=== PATIENT | female | born 1930 | race Caucasian/White ===

== ENCOUNTER 2016-09-20 11:02 | Inpatient (IN) | payer MEDICARE, BC ==
[2016-09-14 15:21] LABS: ASCORBIC ACID (UR NOT ORDER) 20 (NEG); BILIRUBIN, URINE NEGATIVE (NEG); KETONE, URINE NEGATIVE (NEG); LEUKOCYTE ESTERASE(NOT OR LARGE (NEG); WBC (NOT ORDERED) (RFLEX) 152 (0-5)
--- NOTE | ~2016-09-20 | OP ---
Record Of Operation [facility] [address] [place]. [address] NAME: TOMI LEONARD : 32 STATUS : ADM IN PAT#: [id number] AGE: 86 ADM/REG DATE : 09/20/16 MR#: [id number] REPORT SERV DATE: 09/20/16 DICTATED BY: ASHANTI VILLASENOR DATE: 09/20/16 REPORT STATUS : Draft TRANSCRIBED BY: MODL DATE: 09/20/16 DATE OF PROCEDURE: 09/20/2016 PREOPERATIVE DIAGNOSIS: Colovesical fistula. POSTOPERATIVE DIAGNOSIS: Colovesical fistula. PROCEDURE PERFORMED: Cystoscopy with left ureteral catheterization. SURGEON: Ashanti Villasenor M.D. ANESTHESIA: General. DRAINS: 1. Bajwa catheter. 2. Left 5-Tanzanian open-ended ureteral catheter. INDICATION: Ms. Leonard is an 86-year-old, with symptomatic colovesical fistula. She has had recurring UTIs. She started Ancef yesterday for positive urine culture. 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 TECHNIQUE: Informed consent was obtained. She was brought to the operating room, Ancef and Flagyl were given preop. General endotracheal anesthesia was administered. Initially the abdomen, introitus, and perirectal area were prepped and draped in the lithotomy position. Rigid cystoscopy was performed. There was some sediment at the bladder base. Clear efflux on the right and left UO. The left ureter was cannulated and a Pollack catheter was passed to a 26 cm. The bladder was inspected. There was a fistulous site approximately 3 cm superior to the left UO on the left lobe bladder wall on the left posterior bladder wall. No papillary features. The cystoscope was removed. I placed a 16-Tanzanian Bajwa catheter, connected the opening catheter to the Bajwa. Once Dr. Bravo had performed her initial portion of the surgery and the colon was dissected away from the bladder I irrigated the Bajwa with 250 mL of sterile water. There was no visible leak. There was some inflammation in the area, but cystorrhaphy did not seem warranted. Bladder was reconnected to drainage bag. This can be removed in five to seven days postop. CHUY/HAYDEN Ashanti Villasenor M.D. / [id number] Record Of [address] [place]. [address] NAME: TOMI LEONARD : 32 STATUS : ADM IN PAT#: [id number] AGE: 86 ADM/REG DATE : 09/20/16 MR#: [id number] REPORT SERV DATE: 09/20/16 DICTATED BY: ASHANTI VILLASENOR DATE: 09/20/16 REPORT STATUS : Draft TRANSCRIBED BY: MODL DATE: 09/20/16 CC: Sukhjinder Pool M.D.
--- NOTE | ~2016-09-20 | HP ---
History And Physical [id number] [place]. [address] NAME: TOMI MCKENZIE : 32 STATUS : ADM IN [facility]#: [id number] AGE: 86 ADM/REG DATE : 09/20/16 MR#: [id number] REPORT SERV DATE: 09/20/16 DICTATED BY: LEBRON LOUISE DATE: 09/20/16 REPORT STATUS : Draft TRANSCRIBED BY: HAYDEN DATE: 09/20/16 DATE OF ADMISSION: 09/20/2016 REASON FOR ADMISSION: Robotic low anterior resection for colovesicular fistula. PAST MEDICAL HISTORY: Significant for hyperlipidemia, colovesicular fistula, hypertension, irritable bowel syndrome, scarlet fever as a child, and skin cancer. PAST SURGICAL HISTORY: Appendectomy, cataract surgery, skin cancer removal, cholecystectomy, right hip and knee replacement, and pacemaker. SOCIAL HISTORY: She is not a smoker. She is a social drinker and drinks one glass of wine a week. FAMILY HISTORY: Noncontributory. ALLERGIES: DOXYCYCLINE, NEXIUM, AND SULFA. MEDICATIONS: Mesalamine, aspirin, multivitamin, levothyroxine, potassium, losartan, amlodipine, pravastatin, Meloxicam, and hydrochlorothiazide. REVIEW OF SYSTEMS: As stated in HPI, otherwise, negative. PHYSICAL EXAMINATION: VITAL SIGNS: 80, 133/86. BMI of 23. GENERAL: Alert, thin white female, in no acute distress. HEENT: Normocephalic, atraumatic. EOMI. PERRLA. Oropharynx is clear. NECK: Supple. No lymphadenopathy. Clear to auscultation bilaterally. HEART: Regular rate and rhythm. ABDOMEN: Soft, flat, with appropriate surgical scars. EXTREMITIES: Moves all extremities well. Cranial nerves 2 through 12 are intact. SKIN: No rashes. CAROLINE/HAYDEN Lebron Louise M.D. / [id number] CC: Lebron Louise M.D.
--- NOTE | ~2016-09-20 | OP ---
Record Of Operation [facility] [address] [place]. [address] NAME: TOMI MCKENZIE : 32 STATUS : ADM IN PAT#: [id number] AGE: 86 ADM/REG DATE : 09/20/16 MR#: [id number] REPORT SERV DATE: 09/21/16 DICTATED BY: LEBRON BRAVO DATE: 09/20/16 REPORT STATUS : Draft TRANSCRIBED BY: MODL DATE: 09/20/16 DATE OF PROCEDURE: 09/20/2016 PROCEDURE: Robotic low anterior resection with omental flap. Please see Dr. Conroy's dictation for cystoscopy with placement of left ureteral stent. PIT SUPERVISOR: Arjun Goldman. DESCRIPTION OF PROCEDURE: The patient was taken to the operating room, induced under general anesthesia, placed into lithotomy, prepped and draped in the usual sterile fashion. Please see Dr. Conroy's dictation for cystoscopy and left ureteral stent placement. Once the patient was in position, then a 1 cm incision was made just to the right of the umbilicus. Stay sutures of 2-0 Vicryl were placed on either side and then an 8 mm robotic trocar was placed. The laparoscope 30 degree was placed in through the trocar which had been placed under direct guidance after the abdomen was insufflated. Then, the rest of the trocars were placed, first, a #8 in the right lower quadrant, which was replaced with a #12. Then, the #12 was opened a total of 4 cm. Anterior posterior fascia were opened, and the wound protector was placed in through the incision followed by the #12 robotic trocar. A Loly drain was used to tighten the seal around the trocar. Then, two 8 trocars were placed on the left side in a direct line with the umbilicus and a 5 mm blunt trocar was placed between the camera port and the 12 port in the right lower quadrant. All under laparoscopic guidance. Once this was in position, the patient was placed into Trendelenburg, some padded bowel graspers were used to mobilize the small bowel from the pelvis. The sigmoid colon appeared to be densely adherent to the left side of the bladder. The uterus was still in place but had fallen deep into the pelvis. It was not obstructing the view. Then, at this point, the patient was placed in Trendelenburg and right airplane. The robot was docked. At this point, Dr. Mckeon sat at the robotic console. Arjun was at the patient's side and dissection began with mobilizing of the entire left colon including the splenic flexure. Then, dissection was performed of the sigmoid colon from the bladder wall. The little diverticula had been evident on cystoscopy. Once the colon had been mobilized, there did not appear to be a true fistula at the time of the resection. Dr. Conroy filled the bladder with 350 mL of fluid. There was no leaking of this area was observed, and the decision was made that no bladder repair needed to be performed. At this point, we continued with mobilization followed by resection. During mobilization, the left ureter was easily identified and kept out of arm's way. Then, the rectum was brought up to the sacral promontory. Here, a window was made in the mesentery on either side and the bowel was transected using 2 green loads of the robotic stapler. Following this, then the descending colon was held up towards the abdominal wall. A window was made in the mesentery at this level, and the mesentery was transected using the vessel sealer. Following this, then ICG was given IV. Firefly was used to identify that there was good blood supply at the level where the mesenteric window had been made. This is the level of the transection. Then, the colon was marked at this level. This is where an enterotomy was made in order to place the anvil. The 29 EEA and anvil had been placed at the beginning of the case through the wound protector in the right lower quadrant. It was attached to 15 cm of Prolene suture. This suture was hooked into the peritoneum in the right lower quadrant to avoid losing it and the enterotomy was created and the anvil was placed through the enterotomy into the well- Record Of Operation [address] [place]. [address] NAME: TOMI MCKENZIE : 34 STATUS : ADM IN [facility]#: [id number] AGE: 86 ADM/REG DATE : 09/20/16 MR#: [id number] REPORT SERV DATE: 09/21/16 DICTATED BY: LEBRON BRAVO DATE: 09/20/16 REPORT STATUS : Draft TRANSCRIBED BY: MODL DATE: 09/20/16 vascularized colon. Here, then a small enterotomy was made to bring the spike up through this enterotomy and the fenestrated grasper was used to hold it in place as the larger enterotomy was closed using the Prolene suture in a running fashion. The needle was left attached and buried into the colon. Then, the colon was transected proximal to the closed enterotomy using green load of the Endo-ANNA. Hemostasis was achieved using the vessel sealer, and in order to avoid any leaking, a second pursestring was placed around the anvil to keep the bowel tight around the anvil. At this point, Arjun Goldman used an anvil grasper through the 12 port in the right lower quadrant grasping the anvil and bringing it down towards the rectal stump. Dr. Mckeon went between the legs, dilated the anus; 1, 2, then 3 fingers, bringing the stapler up to the staple line bringing the spike out exactly at the staple line. Arjun attached the anvil to the stapler, locked it in place. Dr. Mckeon closed the stapler until the marker was [facility] in the green window where it was held for 15 seconds, all the way through the green window held for 15 seconds and then fired and held for 15 seconds. At this point, it was turned two full turns and brought out through the anus. There were 2 complete donuts that were passed off the table and sent to pathology. Dr. Mckeon went back to the console, used the fenestrated grasper to clamp the proximal colon. Arjun filled the pelvis with fluid submerging the anastomosis and then Dr. Mckeon tested the anastomosis with proctoscopy and insufflation. This was a negative leak test. No air bubbles. At this point, Dr. Mckeon released the fenestrated grasper. She then created an omental flap from the transverse colon, sewing it into the area where the fistula had been removed with two interrupted 3-0 Vicryl sutures holding it in place. Then, she handed the specimen to Arjun Goldman using a padded grasper through the 12 port which was locked in place. She rescrubbed, and at this point, the robot was undocked after all the instruments and trocars were removed under laparoscopic guidance to avoid bleeding. At this point, she released the Loly brought the specimen out through the wound protector including the needle. It was passed off the table and sent to Pathology. Then, at this site, the posterior fascia was closed with a running 0 Prolene suture. Anterior fascia closed with the same. All wounds were irrigated. The camera site was closed with a figure- of-eight 2-0 Vicryl suture. All skin was closed with 4-0 Monocryl followed by benzoin, Steri-Strips, and Band-Aids. She tolerated the procedure well. CAROLINE/HAYDEN Lebron Bravo M.D. / [id number] CC: Sukhjinder Pool M.D. John C House, M.D.
[~2016-09-20 11:02] MED LIST: ACET500CAP PO; ADVIL PO; ALEVE220 MG PO; ASAB PO; B12250T PO; C25 PO; CALTRA600D PO; CINNAMONPO PO; COZAAR100 MG PO; DIOVAN320 MG PO; DSS PO; FESO4 PO; FISH OIL1200 MG PO; FLONASE NAS; HIPREX1 GM PO; HYDROCHLOROT12.5 MG PO; KDUR10 PO; LEVOTHYROXIN50 MCG PO; LOP100 PO; LOP50 PO; MAX25 PO; MULTIPLE VIT PO; MULTIVIT/MIN PO; NORV5 PO; PCET PO; PRAV10 PO; SINGULAIR1 PO; TIROSINT50 MCG PO; VITAMIN D31000 UNIT PO; VITC500 PO; VOLT50 PO
[2016-09-20 11:57] LABS: HEMATOCRIT 38.5 % (36.0-48.0); HEMOGLOBIN 13.8 g/dL (12.0-16.0)
[2016-09-20 12:09] LABS: BUN (BLOOD UREA NITROGEN) 12 MG/DL (6-23); CALCIUM, SERUM 9.8 MG/DL (8.5-10.4); CHLORIDE, SERUM 103 MMOL/L (96-112); CO2 (CARBON DIOXIDE) 33 MMOL/L (24-34); CREATININE 1.17 MG/DL (0.55-1.02); GFR AFRICAN AMERICAN 50 ML/MIN (>=60); GFR NON AFRICAN AMERICAN 43 ML/MIN (>=60); GLUCOSE, SERUM 135 MG/DL (60-99); POTASSIUM, SERUM 4.1 MMOL/L (3.5-5.3); SODIUM, SERUM 141 MMOL/L (135-148)
[2016-09-20 23:28] LABS: HEMATOCRIT 35.8 % (36.0-48.0); HEMOGLOBIN 13.1 g/dL (12.0-16.0)
[2016-09-21 07:22] LABS: BASOPHILS 0 %; EOSINOPHILS 0 %; HEMOGLOBIN 11.1 g/dL (12.0-16.0); IMMATURE GRANULOCYTES 0.1 %; IMMATURE GRANULOCYTES ABSOLUTE 0.01 10/3/uL (0.0-0.11); LYMPHOCYTES ABSOLUTE 0.65 10/3/uL (0.67-4.30); MANUAL DIFF NO %; MEAN CORPUS HGB CONC 35.8 g/dL (32.0-36.0); MEAN CORPUSCULAR VOLUME 86.6 fL (80-100); MEAN PLATELET VOLUME 9.3 fL (9.2-13.0); MONOCYTES 5.2 %; MONOCYTES ABSOLUTE 0.49 10/3/uL (0.21-1.20); NEUTROPHILS 87.7 %; PLATELET COUNT 141 10/3/uL (150-400); RBC DISTRIBUTION WIDTH 12.2 % (12.0-16.0); RED CELL COUNT 3.58 10/6/uL (4.0-5.6); WHITE BLOOD CELLS 9.4 10/3/uL (4.5-10.5)
[2016-09-21 10:06] LABS: BUN (BLOOD UREA NITROGEN) 11 MG/DL (6-23); CREATININE 1.31 MG/DL (0.55-1.02); GFR AFRICAN AMERICAN 43 ML/MIN (>=60); GFR NON AFRICAN AMERICAN 37 ML/MIN (>=60); GLUCOSE, SERUM 131 MG/DL (60-99)
[2016-09-21 10:07] LABS: CALCIUM, SERUM 8.3 MG/DL (8.5-10.4)
[2016-09-21 10:11] LABS: CHLORIDE, SERUM 99 MMOL/L (96-112); POTASSIUM, SERUM 3.7 MMOL/L (3.5-5.3)
[2016-09-21 10:12] LABS: CO2 (CARBON DIOXIDE) 25 MMOL/L (24-34); SODIUM, SERUM 132 MMOL/L (135-148)
[2016-09-22] MEDS ORDERED: PERCOCET 7.5/321 TAB PO (11:17)
== END 2016-09-22 12:31 | disposition home or self-care (01) | DRG 330 ==
LOC: SDC/OF 11:02 → PACU 18:54 → 5SO 20:02
PROVIDERS: Surgery; Urology
PROC: 0T9B80Z Drainage of Bladder with Drainage Device, Via Natural or Artificial Opening Endoscopic (ICD-10-PCS; 2016-09-20)
PROC: 0UJH8ZZ Inspection of Vagina and Cul-de-sac, Via Natural or Artificial Opening Endoscopic (ICD-10-PCS; 2016-09-20)
PROC: 0DJD8ZZ Inspection of Lower Intestinal Tract, Via Natural or Artificial Opening Endoscopic (ICD-10-PCS; 2016-09-20)
PROC: 0DU Gastrointestinal System, Supplement (ICD-10-PCS; principal; 2016-09-20 12:00)
PROC: 0DBM4ZZ Excision of Descending Colon, Percutaneous Endoscopic Approach (ICD-10-PCS; 2016-09-20 12:00)
DX: K57.20 Diverticulitis of large intestine with perforation and abscess without bleeding (principal); N32.1 Vesicointestinal fistula; K63.2 Fistula of intestine; I10 Essential (primary) hypertension; E78.5 Hyperlipidemia, unspecified; K58.9 Irritable bowel syndrome, unspecified; K21.9 Gastro-esophageal reflux disease without esophagitis; Z96.641 Presence of right artificial hip joint; Z96.651 Presence of right artificial knee joint; Z90.49 Acquired absence of other specified parts of digestive tract; Z95.0 Presence of cardiac pacemaker; Z98.890 Other specified postprocedural states; Z88.1 Allergy status to other antibiotic agents; Z88.2 Allergy status to sulfonamides; Z88.8 Allergy status to other drugs, medicaments and biological substances; Z79.899 Other long term (current) drug therapy; Z87.891 Personal history of nicotine dependence; K64.8 Other hemorrhoids; K57.30 Diverticulosis of large intestine without perforation or abscess without bleeding; M19.90 Unspecified osteoarthritis, unspecified site; E30.9 Disorder of puberty, unspecified
CPT/HCPCS: 36415; 72170; 80048; 81001; 85014; 85018; 85025; 86850; 86900; 86901; 87077; 87086; 87186; 88307; 93005; A9270-GY; C1758; C1769; J0690; J1885; J2250; J2270; J2405; J2710; J2795; J3010; P9045